=== PATIENT | male | born 1985 | race Hispanic/Latino ===

== ENCOUNTER 2021-10-27 13:57 | Emergency (ER) | payer OTHER ==
[~2021-10-27] VITALS: Ht 167.6 cm; Wt 77.4 kg
[2021-10-27] MEDS ORDERED: MOTRIN400 MG/TAB PO (15:39)
[2021-10-27 15:50] VITALS: BP 136/82
== END 2021-10-27 15:50 | disposition home or self-care (01) | DRG 605 ==
LOC: ED 13:57
DX: S80.01XA Contusion of right knee, initial encounter (principal); W22.09XA Striking against other stationary object, initial encounter; Y92.89 Other specified places as the place of occurrence of the external cause; Y99.0 Civilian activity done for income or pay